=== PATIENT | female | born 1970 | race Caucasian/White ===

== ENCOUNTER 2019-04-08 21:46 | Emergency (ER) | payer SELFPAY ==
[~2019-04-08] VITALS: Ht 172.7 cm; Wt 95.3 kg
--- NOTE | 2019-04-08 22:26 | ED Lower Extremity ---
General Stated Complaint: DOG BITE Source: patient Exam Limitations: no limitations History of Present Illness Date Seen by Provider: Apr 08, 2019 Time Seen by Provider: 22:23 Initial Comments Patient's dog bit her on left lower extremity prior to arrival. He was going after a toy. Complains laceration puncture to left lower leg. No other injury. Allergies and Home Medications Allergies Coded Allergies: No Known Drug Allergies (Unverified , 04/08/19) Home Medications Amoxicillin/Potassium Clav 1 Each Tablet, 1 EACH PO BID Prescribed by: TRENT TURNER on 04/08/19 6514 Patient Home Medication List Home Medication List Reviewed: Yes Review of Systems Constitutional: no symptoms reported Respiratory: no symptoms reported Cardiovascular: no symptoms reported Musculoskeletal: see HPI Skin: see HPI Past Ivhuorr-Modrgd-Nitqta Hx Patient Social History Recent Foreign Travel: No Contact w/Someone Who Travel: No Physical Exam Vital Signs Capillary Refill : Height, Weight, BMI Height: '" Weight: lbs. oz. kg; BMI Method: General Appearance: WD/WN, no apparent distress Neck: supple Cardiovascular: regular rate, rhythm Respiratory: lungs clear Legs: left leg other (there is a 4 cm V-shaped laceration/flap to the medial aspect of the distal left lower leg. There is also a small puncture wound above this.) Neurologic/Psychiatric: alert Skin: normal color, warm/dry Procedures/Interventions Wound Location: Lower Extremities Other Wound Location Medial aspect left lower leg Wound Length (cm): 4 Wound's Depth, Shape: sub Q Wound Explored: contaminated Irrigated w/ Saline (ccs): 50 Betadine Prep?: Yes Anesthesia: 1% Lidocaine Volume Anesthetic (ccs): 5 Suture: Ethlion Suture Size: 4-0 Number of Sutures: 3 Sterile Dressing Applied?: Yes Progress/Results/Core Measures Results/Orders My Orders Orders - TRENT TURNER MD Lidocaine 1% Inj 20 Ml (Xylocaine 1% Inj (04/08/19 22:30) Amoxicillin/Clavulanate Tablet (Augmenti (04/08/19 22:45) Medications Given in ED Current Medications Medications Dose Ordered Sig/Natalie Route Start Time Stop Time Status Last Admin Dose Admin Lidocaine HCl 20 ml ONCE ONCE INJ 04/08/19 22:30 04/08/19 22:31 DC 04/08/19 22:46 20 ML Progress Progress Note : Time: 22:25 Progress Note Laceration is deep and gaping. It will need suturing. We'll close loosely with 4-0 nylon. After cleaning it out with saline. Tetanus shot is up-to-date. Departure Impression Primary Impression: Dog bite of left lower leg Disposition: HOME, SELF-CARE Condition: Stable Departure-Patient Inst. Decision time for Depature: 22:43 Referrals: NO,LOCAL PHYSICIAN (PCP/Family) Primary Care Physician Patient Instructions: DOG BITE Add. Discharge Instructions: Keep leg elevated as much as possible. Keep dressing on for 48 hours. Then change daily. Sutures out in 14 days. Scripts Amoxicillin/Potassium Clav (Augmentin 875-125 Tablet) 1 Each Tablet 1 EACH PO BID, #6 TAB 0 Refills Prov: TRENT TURNER MD 04/08/19 TRENT TURNER MD Apr 08, 2019 22:26 POS
[2019-04-08] MEDS ORDERED: LIDOCAINE 1% INJ 20 ML 20 ML VIAL INJ ONE (22:30)
[2019-04-08] MEDS ORDERED: AMOX-358 PO (22:44)
[2019-04-08] MEDS ORDERED: AUGMENTIN 875 MG TAB (AMOXICILLIN/CLAVULANATE) PO SCH (22:45)
[2019-04-08 23:00] VITALS: BP 139/78
== END 2019-04-08 23:00 | disposition home or self-care (01) ==
LOC: EDUNIT# 21:46 → ER FS 21:49
DX: S81.852A Open bite, left lower leg, initial encounter (principal); W54.0XXA Bitten by dog, initial encounter
CPT/HCPCS: 12032

== ENCOUNTER → 2020-11-03 | Outpatient (CLI) | payer BC ==
[~2020-11-03] MED LIST: AMOX-358 PO
--- NOTE | 2020-11-03 09:24 | Diagnostic Imaging Report ---
PROCEDURE: CT chest without contrast. TECHNIQUE: Multiple contiguous axial images were obtained through the chest without the use of intravenous contrast. Auto Exposure Controls were utilized during the CT exam to meet ALARA standards for radiation dose reduction. INDICATION: Left lung mass. COMPARISON: I have no previous studies for comparison or correlation. FINDINGS: No lung mass or suspicious pulmonary nodule. The lungs are clear. No infiltrate, effusion, pneumothorax, or failure pattern. The aorta is nonaneurysmal. No vascular calcifications. No evidence for thoracic lymphadenopathy. No acute soft tissue or osseous chest wall pathology. The visualized upper abdomen appears normal. IMPRESSION: 1. Normal CT chest. 2. In particular, no identifiable mass or nodule. Dictated by: Dictated on workstation # [id number]
== END ==
LOC: RAD FS 08:49
PROVIDERS: ATTEND Nurse Practitioner Family
DX: R91.1 Solitary pulmonary nodule (principal); R91.8 Other nonspecific abnormal finding of lung field
CPT/HCPCS: 71250